=== PATIENT | male | born 1950 | race Caucasian/White ===

== ENCOUNTER 2019-10-17 10:55 | Emergency (ER) | payer MEDICARE, OTHER ==
[~2019-10-17] VITALS: Ht 182.9 cm; Wt 95.2 kg
[~2019-10-17 10:55] MED LIST: CEPH500 PO; CYAN100 PO; OXYACE5T PO; PYRI100 PO
[2019-10-17 11:18] LABS: BASOPHILS ABSOLUTE AUTO 0.08 K/mm3 (0.00-0.23); BASOPHILS PERCENT AUTO 1 % (0-2); EOSINOPHILS ABSOLUTE AUTO 0.28 K/mm3 (0.00-0.68); EOSINOPHILS PERCENT AUTO 3 % (0-6); Hematocrit 41.1 % (37.0-53.0); Hemoglobin 13.1 g/dL (13.5-17.5); IMMATURE GRAN ABSOLUTE AUTO 0.06 K/mm3 (0.00-0.10); IMMATURE GRAN PERCENT AUTO 1 % (0-1); LYMPHOCYTES PERCENT AUTO 44 % (21-46); MONOCYTES ABSOLUTE AUTO 0.95 K/mm3 (0.16-1.47); MONOCYTES PERCENT AUTO 9 % (4-13); Mean Corpuscular HGB 33.8 pg (26.0-34.0); Mean Corpuscular HGB Conc 31.9 g/dL (31.5-36.5); Mean Corpuscular Volume 106 fL (80-100); Mean Platelet Volume 12.7 fL (9.1-12.4); NEUTROPHILS PERCENT AUTO 43 % (41-73); Platelet Count 163 K/mm3 (150-400); RDW Coefficient Variation 14.5 % (11.7-14.2); RDW Standard Deviation 56.8 fL (35.1-46.3); Red Blood Cell Count 3.88 M/mm3 (4.30-5.90); White Blood Cell Count 10.67 K/mm3 (4.00-11.30)
[2019-10-17 11:32] LABS: International Normalized Ratio 0.93
[2019-10-17] MEDS ORDERED: LOSARTAN POTASS50 MG PO (11:42)
[2019-10-17] MEDS ORDERED: METOPROLOL TART25 MG PO (11:42)
[2019-10-17] MEDS ORDERED: [UNRECOGNIZED DRUG - OTHER] PO (11:54)
[2019-10-17] MEDS ORDERED: ZOCOR40 MG PO (11:55)
[2019-10-17 12:04] LABS: Albumin, Blood 3.9 g/dL (3.4-5.0); Albumin/Globulin Ratio 0.9 (0.8-1.8); Bilirubin, Total 0.4 mg/dL (0.1-1.0); Bun/Creatinine Ratio 13.1 (12.0-20.0); Creatinine, Blood 1.45 mg/dL (0.60-1.20); Globulin, Blood 4.2 g/dL (2.2-4.0); Potassium, Blood 4.6 mmol/L (3.5-5.5); Total Protein, Blood 8.1 g/dL (6.4-8.2)
--- NOTE | 2019-10-17 13:40 | NUR ---
Called by staff to provide emotional support to Onofre's two dtrs. They are tearful and appropriate. Both state that pt would never want to live with any handicaps. They are ok with all life saving interventions for the time being. When I brought family to see pt, he began to show signs of slight response to their voices. I provided calm presence, relayed information, offered prayer and gentle counselor dormitory. Affirmed obvious strength and love. I will remain available.
--- NOTE | 2019-10-17 16:45 | NUR ---
Called by staff to return to this family. Provided pre parole counseling aide and prayer. Dtrs appear overwhelmed, but respond well to nude model interventions. I will remain available.
--- NOTE | 2019-10-17 19:55 | NUR ---
Called to ER to update patients polst pt critically ill and plan is transfer. Daughters willing to accept higher level of care. However, they know that if he declines they he would not want recusitation or intubation. Copleted new polst of DNR with limited interventions for level of treatment. polst faxed to to medical recoreds and original give to daughter and copies to EMS and hospital packet.
== END 2019-10-17 17:04 | disposition short-term general hospital (02) ==
LOC: ER 10:55
PROVIDERS: Emergency Medicine
DX: G40.901 Epilepsy, unspecified, not intractable, with status epilepticus (principal); Z86.73 Personal history of transient ischemic attack (TIA), and cerebral infarction without residual deficits
CPT/HCPCS: 36415; 51702; 70450; 70496; 70498; 71045; 80053; 85025; 85610; 85730; 93005; 93010; 96365-59; 96375-59; 96376-59; 99285-25; J1953; J2060; Q9967